=== PATIENT | male | born 1985 | race Caucasian/White ===

== ENCOUNTER 2018-07-03 15:07 | Outpatient (CLI) | payer OTHER, SELFPAY ==
--- NOTE | 2018-07-03 14:50 | DI.RAD_ITS ---
SYMPTOMS/DIAGNOSIS: CERVICALGIA, M54.2, LEFT ARM NUMBNESS, ANESTHESIA OF SKIN, R20.0 CERVICAL SPINE: The disc spaces are well maintained. The alignment appears normal. There are no significant facet degenerative changes. IMPRESSION: Negative cervical spine.
== END 2018-07-03 15:27 ==
PROVIDERS: PCP Nurse Practitioner; Visit Provider Nurse Practitioner
DX: M54.2 Cervicalgia (principal); R20.0 Anesthesia of skin
CPT/HCPCS: 72050

== ENCOUNTER 2019-09-28 08:43 | Outpatient (CLI) | payer OTHER, SELFPAY ==
[2019-09-29 14:01] LABS: COVID-19 RT-PCR UVMMC Result Negative (Negative)
== END 2019-09-28 09:03 ==
PROVIDERS: PCP Nurse Practitioner; Visit Provider Nurse Practitioner
DX: R05 Cough (principal); J02.9 Acute pharyngitis, unspecified
CPT/HCPCS: U0003

== ENCOUNTER 2022-10-19 02:57 | Outpatient (CLI) | payer BC, SELFPAY ==
[2022-10-19 12:43] LABS: Hemoglobin A1C 5.6 % (<5.7)
[2022-10-19 12:48] LABS: HCT 44.8 % (40.0-50.0); HGB 14.9 g/dL (13.5-17.5); MCH 29.3 pg (27.0-33.0); MCHC 33.3 % (32.0-36.0); MCV 88 fL (80-95); MPV 9.4 fL (8.0-11.0); Platelet Count 247 10^3/uL (130-400); RBC 5.08 10^6/uL (4.36-5.78); RDW 12.3 % (11.8-14.1); RDW-SD 39.9 fL; WBC 7.12 10^3/uL (4.4-10.8)
[2022-10-19 12:50] LABS: ALT 37 U/L (16-63); AST 21 U/L (15-37); Albumin 3.9 g/dL (3.4-5.0); Alkaline Phosphatase 95 U/L (46-116); Anion Gap 6.2 mmol/L (3-11); BUN 14 mg/dL (7-18); Bilirubin, Total 0.5 mg/dL (0.2-1.0); CO2 30.8 mmol/L (21.0-32.0); CREATININE 0.9 mg/dL (0.70-1.30); Calcium 9.4 mg/dL (8.5-10.1); Calculated LDL 144 mg/dL (<100); Chloride 102 mmol/L (98-107); Cholesterol 208 mg/dL (<200); Estimated GFR 112.81 (mL/min/1.73m2); Glucose 116 mg/dL (74-106); HDL Cholesterol 53 mg/dL (40-60); Potassium 3.9 mmol/L (3.5-5.1); Sodium 139 mmol/L (136-145); Total Protein 7.5 g/dL (6.4-8.2); Triglyceride 57 mg/dL (<150)
== END 2022-10-19 02:58 | disposition home or self-care (01) ==
LOC: LOS 02:58
PROVIDERS: PCP Nurse Practitioner Family; Visit Provider Nurse Practitioner Family
DX: R53.83 Other fatigue (principal); Z13.1 Encounter for screening for diabetes mellitus; Z13.220 Encounter for screening for lipoid disorders
CPT/HCPCS: 36415; 80053; 80061; 85027; 83036

== ENCOUNTER 2022-12-16 17:26 | Outpatient (CLI) | payer BC, SELFPAY ==
--- NOTE | 2022-12-16 17:30 | DI.RAD_ITS ---
Exam(s) XR FOOT LT COMPLETE EXAM: XR FOOT LT COMPLETE CLINICAL HISTORY: left foot pain. TECHNIQUE: 2D digital imaging was performed. Three views. COMPARISON: No exams were available for comparison FINDINGS: BONES: No acute fracture is present. No bony destructive lesion is seen. Tiny heel spurs. JOINTS: No dislocation present. SOFT TISSUE: Normal. IMPRESSION: No acute abnormality. DATA REPOSITORY: RADIATION DOSE DELIVERED:
--- NOTE | 2022-12-16 18:08 | DI.VRAD_ITS ---
PROCEDURE INFORMATION: Exam: XR Left Foot Exam date and time: 12/16/2022 5:40 PM Age: 37 years old Clinical indication: Patient HX: Persitant pain dorsal left foot TECHNIQUE: Imaging protocol: Radiologic exam of the left foot. Views: 3 or more views. COMPARISON: No relevant prior studies available. FINDINGS: Bones/joints: Osseous alignment is normal. No acute fracture. No significant arthritic change. Soft tissues: Normal. IMPRESSION: No acute fracture Dictated and Authenticated by: Gonzalo Lira MD. Ordering:MARIELA Isaac MD
== END 2022-12-16 17:46 ==
PROVIDERS: PCP Nurse Practitioner Family; Visit Provider Physician Assistant
DX: M79.672 Pain in left foot (principal)
CPT/HCPCS: 73630

== ENCOUNTER 2024-10-30 02:09 | Outpatient (CLI) | payer BC, SELFPAY ==
[2024-10-30 08:15] LABS: Abs Immature Grans 0.01 10^3/uL (0.0-0.06); Absolute Basophil Count 0.04 10^3/uL (0.0-0.2); Absolute Lymphocyte Count 3.63 10^3/uL (1.2-3.4); Absolute Monocyte Count 0.51 10^3/uL (0.1-0.8); Absolute Neutrophil Count 3.48 10^3/uL (1.2-6.7); Basophils % 0.5 %; Eosinophils % 2.5 %; HCT 44.3 % (40.0-50.0); HGB 15.2 g/dL (13.5-17.5); Immature Grans % 0.1 %; Lymphocytes % 46.1 %; MCH 29.5 pg (27.0-33.0); MCHC 34.3 % (32.0-36.0); MCV 86 fL (80-95); MPV 8.7 fL (8.0-11.0); Monocytes % 6.5 %; Neutrophils % 44.3 %; Platelet Count 239 10^3/uL (130-400); RBC 5.15 10^6/uL (4.36-5.78); RDW 12.7 % (11.8-14.1); WBC 7.87 10^3/uL (4.4-10.8)
[2024-10-30 08:40] LABS: ALT 29 U/L (16-63); AST 18 U/L (15-37); Alkaline Phosphatase 105 U/L (46-116); Bilirubin, Direct 0.2 mg/dL (0.0-0.2); Bilirubin, Total 0.6 mg/dL (0.2-1.0); CREATININE 0.8 mg/dL (0.70-1.30); Calcium 9.2 mg/dL (8.5-10.1); Chloride 103 mmol/L (98-107); Estimated GFR 115.45 (mL/min/1.73m2); Glucose 104 mg/dL (74-106); Potassium 4.3 mmol/L (3.5-5.1); Sodium 140 mmol/L (136-145)
[2024-10-30 09:13] LABS: Hemoglobin A1C 5.9 % (<5.7)
[2024-10-30 09:28] LABS: BUN 18 mg/dL (7-18); Calculated LDL 114 mg/dL (<100); Cholesterol 186 mg/dL (<200); Ferritin 183 ng/mL (26-388); HDL Cholesterol 62 mg/dL (>or=40); TSH (W/Ref FT4) 1.82 uIU/mL (0.36-3.74); Total Protein 7.8 g/dL (6.4-8.2); Triglyceride 52 mg/dL (<150); Vitamin B12 291 pg/mL (193-986)
[2024-10-30 09:31] LABS: Iron 57 ug/dL (65-175); Total Iron Binding Capacity 292 ug/dL (250-450)
[2024-10-31 08:31] LABS: Transferrin 238 mg/dL (201-352)
== END 2024-10-30 02:10 | disposition home or self-care (01) ==
LOC: LBO 02:09
PROVIDERS: PCP Nurse Practitioner Family; Visit Provider Nurse Practitioner Family
DX: Z13.220 Encounter for screening for lipoid disorders (principal); D50.9 Iron deficiency anemia, unspecified; Z13.1 Encounter for screening for diabetes mellitus
CPT/HCPCS: 36415; 80053; 80061; 80076; 82607; 82728; 83036; 83540; 83550; 84443; 84466; 85025